=== PATIENT | female | born 1995 | race African-American/Black ===

== ENCOUNTER 2016-11-12 04:32 | Emergency (ER) | payer MEDICAID ==
[~2016-11-12] VITALS: Ht 172.7 cm; Wt 79.4 kg
[2016-11-12 07:31] VITALS: BP 108/69
[2016-11-12 08:16] LABS: Basophils # (auto) 0 uL; Basophils % (auto) 0.4 % (0.0-2.0); CONDITION Y; Eosinophils # (auto) 0 uL; Eosinophils % (auto) 0.7 % (0.0-7.0); Hematocrit 41.1 % (36.0-46.0); Hemoglobin 13.9 g/dL (12.2-16.2); Lymphocytes % (auto) 14.8 % (10.0-50.0); Mean Corpuscular Hemoglobin 27.5 pg (28.0-32.0); Mean Corpuscular Hgb Conc. 33.8 g/dL (32.0-36.0); Mean Corpuscular Volume 81.6 fL (80.0-100.0); Mean Platelet Volume 8.3 fL (7.4-10.4); Monocytes # (auto) 0.7 uL; Monocytes % (auto) 10.6 % (0.0-12.0); Neutrophils % (auto) 73.5 % (37.0-80.0); Platelet Count (auto) 301 10^3/uL (140-450); Red Cell Distribution Width 14.1 % (11.6-16.0); White Blood Cell 6.8 10^3/uL (4.4-10.8)
[2016-11-12 08:27] LABS: INR 0.98 (0.9-1.15); Partial Thromboplastin Time 26.9 sec (22.64-33.71); Prothrombin Time 10.7 sec (9.37-12.3)
[2016-11-12 08:33] LABS: Albumin 3.3 g/dL (3.4-5.0); Anion Gap 9 (5-15); Aspartate Aminotransferase 89 U/L (15-37); BUN/Creatinine Ratio 12.5; Blood Urea Nitrogen 10 mg/dL (7-18); Calcium 8.2 mg/dL (8.5-10.1); Carbon Dioxide 25 mmol/L (21-32); Chloride 108 mmol/L (98-107); GFR African American 114 mL/min; GFR Non-African American 94 mL/min; Glucose 90 mg/dL (74-106); Potassium 3.4 mmol/L (3.5-5.1); Sodium 142 mmol/L (136-145)
[2016-11-12 08:44] LABS: Alkaline Phosphatase 101 U/L (45-117); Bilirubin, Total 0.3 mg/dL (0.2-1.0); Total Protein 7.2 g/dL (6.4-8.2)
== END 2016-11-12 09:12 | disposition home or self-care (01) ==
LOC: EDUNIT# 04:32 → ER 04:32
DX: T78.40XA Allergy, unspecified, initial encounter (principal)
CPT/HCPCS: 36415; 71010; 80053; 83735; 84484; 85025; 85610; 85730; 93005

== ENCOUNTER 2018-07-23 22:23 | Emergency (ER) | payer MEDICAID ==
[~2018-07-23] VITALS: Ht 172.7 cm; Wt 90.7 kg
[2018-07-24 00:47] LABS: Basophils # (auto) 0 uL; Basophils % (auto) 0.6 % (0.0-2.0); Eosinophils # (auto) 0.5 uL; Eosinophils % (auto) 6.6 % (0.0-7.0); Hematocrit 32.8 % (36.0-46.0); Hemoglobin 11.1 g/dL (12.2-16.2); Lymphocytes # (auto) 2.1 uL; Lymphocytes % (auto) 28.8 % (10.0-50.0); Mean Corpuscular Hgb Conc. 33.7 g/dL (32.0-36.0); Mean Corpuscular Volume 82.9 fL (80.0-100.0); Monocytes # (auto) 0.7 uL; Monocytes % (auto) 9.9 % (0.0-12.0); Neutrophils # (auto) 3.9 uL; Neutrophils % (auto) 54.1 % (37.0-80.0); Platelet Count (auto) 235 10^3/uL (140-450); Red Blood Cells 3.95 10^6/uL (4.0-5.20); White Blood Cell 7.2 10^3/uL (4.4-10.8)
[2018-07-24 01:02] LABS: Potassium 3.5 mmol/L (3.5-5.1)
[2018-07-24 01:05] LABS: Albumin 2.8 g/dL (3.4-5.0); Calcium 8.5 mg/dL (8.5-10.1)
[2018-07-24 01:08] LABS: BUN/Creatinine Ratio 14.1
[2018-07-24 01:11] LABS: Bilirubin, Total 0.1 mg/dL (0.2-1.0); Total Protein 6.5 g/dL (6.4-8.2)
[2018-07-24 02:15] LABS: Urine Bacteria NONE SEEN /hpf (None Seen); Urine Blood Negative /uL (Negative); Urine Hyaline Cast FEW /lpf (0 - 2); Urine Mucus FEW (None Seen); Urine Specific Gravity 1.027 (1.001-1.035); Urine WBC 3 /hpf (0 - 5)
[2018-07-24 06:11] VITALS: BP 109/69
== END 2018-07-24 05:37 | disposition home or self-care (01) ==
LOC: ER 22:23
DX: O09.91 Supervision of high risk pregnancy, unspecified, first trimester (principal); O23.41 Unspecified infection of urinary tract in pregnancy, first trimester; Z3A.01 Less than 8 weeks gestation of pregnancy
CPT/HCPCS: 36415; 80053; 81001; 82962; 84702; 85025; 99283; J7030

== ENCOUNTER 2018-10-12 15:30 | Observation (INO) | payer MEDICAID ==
[2018-10-12] MEDS ORDERED: PREN-96 PO (17:48)
== END 2018-10-12 17:00 | disposition home or self-care (01) | DRG 566 ==
LOC: LDRP 15:30
PROVIDERS: ADMIT Obstetrics & Gynecology; ATTEND Obstetrics & Gynecology
DX: O00.01 Abdominal pregnancy with intrauterine pregnancy (principal); O99.313 Alcohol use complicating pregnancy, third trimester; Z3A.27 27 weeks gestation of pregnancy
CPT/HCPCS: 59025; 81002; G0378

== ENCOUNTER 2018-12-30 04:46 | Inpatient (IN) | payer MEDICAID ==
[~2018-12-30] VITALS: Ht 172.7 cm; Wt 104.3 kg
[2018-12-30] VITALS (12 sets, daily range): BP systolic 91–105; BP diastolic 50–73
[~2018-12-30 04:46] MED LIST: PREN-96 PO
[2018-12-30] MEDS ORDERED: LACTATED RINGER'S 1,000 ML IV SCH ×2 (05:00→12:24)
[2018-12-30 06:45] LABS: Basophils # (auto) 0 uL; Basophils % (auto) 0.2 % (0.0-2.0); Eosinophils # (auto) 0.2 uL; Eosinophils % (auto) 3.2 % (0.0-7.0); Hematocrit 32.3 % (36.0-46.0); Hemoglobin 10.5 g/dL (12.2-16.2); Lymphocytes # (auto) 1.7 uL; Lymphocytes % (auto) 27.1 % (10.0-50.0); Mean Corpuscular Hemoglobin 25.8 pg (28.0-32.0); Mean Corpuscular Hgb Conc. 32.6 g/dL (32.0-36.0); Mean Corpuscular Volume 79.1 fL (80.0-100.0); Monocytes # (auto) 0.8 uL; Neutrophils # (auto) 3.5 uL; Neutrophils % (auto) 56.5 % (37.0-80.0); Nucleated Red Blood Cells % 0.2 %; Platelet Count (auto) 220 10^3/uL (140-450); Red Blood Cells 4.08 10^6/uL (4.0-5.20); Red Cell Distribution Width 16.5 % (11.8-14.3); White Blood Cell 6.2 10^3/uL (4.4-10.8)
[2018-12-30 06:46] LABS: Urine Bacteria FEW /hpf (None Seen); Urine Blood Negative /uL (Negative); Urine Specific Gravity 1.007 (1.001-1.035); Urine WBC 14 /hpf (0 - 5)
[2018-12-30 07:00] LABS: INR 0.93 (0.9-1.15); Partial Thromboplastin Time 28.4 sec (23.64-32.05)
[2018-12-30 07:10] LABS: Potassium 3.2 mmol/L (3.5-5.1)
[2018-12-30 07:17] LABS: Albumin 2.4 g/dL (3.4-5.0); Bilirubin, Total 0.2 mg/dL (0.2-1.0); Calcium 8.4 mg/dL (8.5-10.1); Total Protein 6.1 g/dL (6.4-8.2)
[2018-12-30] MEDS ORDERED: TERBUTALINE SULFATE 1 MG/ML 1ML VIAL SC ONE (08:00)
[2018-12-30] MEDS ORDERED: POTASSIUM CHL 20MEQ/100ML 100 ML IV ONE ×2 (08:00)
[2018-12-30] MEDS ORDERED: TETRACAINE 1% INJ 2 ML VIAL IJ ONE ×2 (10:54→10:56)
[2018-12-30] MEDS ORDERED: MORPHINE SULF(PF) 0.5MG/ML 10ML VIAL ONE (11:02)
[2018-12-30] MEDS ORDERED: LIDOCAINE 1% HCL (LOCAL ANESTH.) INJ 20ML MDV ONE (11:21)
[2018-12-30] MEDS ORDERED: CLINDAMYCIN 900MG IV 50 ML IV ONE (11:23)
[2018-12-30] MEDS ORDERED: OXYTOCIN 10 UNIT/ML 10ML VIAL ONE (11:33)
[2018-12-30] MEDS ORDERED: MIDAZOLAM HCL 1MG/1ML-2 ML VIAL ONE (11:53)
[2018-12-30] MEDS ORDERED: METOCLOPRAMIDE HCL 5MG/ml INJ 2ml VIAL IV PRN (12:30)
[2018-12-30] MEDS ORDERED: ONDANSETRON HCL 4 MG/2 ML VIAL IV PRN ×2 (12:30)
[2018-12-30] MEDS ORDERED: HYDROmorphone HCL 2 MG/ML VL IV PRN ×2 (12:30)
[2018-12-30] MEDS ORDERED: NALOXONE HCL 0.4 MG/ML VIAL IV PRN ×2 (12:30)
[2018-12-30] MEDS ORDERED: diphenhdrAMINE HCL 50 MG/1 ML VL IV PRN (12:30)
[2018-12-30] MEDS ORDERED: KETOROLAC TROMETH 30 MG/ML 1ML VIAL IV PRN (12:30)
--- NOTE | 2018-12-30 13:30 | NUR ---
Post Op for LDRP: Received patient from PACU via bed to room 107b. Patient A/A/Ox4, abdominal binder and bilateral SCD's are in place, IV fluids placed on pump and infusing per order, incisional site dressing clean/dry/intact and Lazo Catheter to gravity draining clear yellow urine. Incentive Spirometer at bedside and instruction on proper use with return demonstration done by patient.
[2018-12-30] MEDS ORDERED: CLINDAMYCIN 900MG IV 50 ML IV SCH (14:00)
--- NOTE | 2018-12-30 14:35 | NUR ---
PER [place] REQUEST DR WHEAT CALLED TO COME TALK TO THE FAMILY IN REGARDS ANESTHESIA EFFECTS, PER DR WHEAT SHE IS IN CASE AND WILL COME TALK TO THE FAMILY IN LITTLE BIT. FAMILY NOTIFIED.
--- NOTE | 2018-12-30 15:02 | NUR ---
DR WHEAT AT BEDSIDE, TALKING TO THE PT AND FAMILY IN REGARDS ANESTHESIA. QUESTIONS AND CONCERNS ANSWERED BY DR WHEAT.
[2018-12-30] MEDS ORDERED: KETOROLAC TROMETH 30 MG/ML 1ML VIAL IV SCH ×2 (17:00→18:00)
[2018-12-30 17:16] LABS: Alcohol, Urine < 3.0 mg/dL (0-5); Amphetamine Screen, Urine NEGATIVE (NEGATIVE); Barbiturate Scree,Urine NEGATIVE (NEGATIVE); Benzodiazephine Screen, Urine POSITIVE (NEGATIVE); Cannabinoid Screen, Urine NEGATIVE (NEGATIVE); Cocaine Screen, Urine NEGATIVE (NEGATIVE); Opiate Scree,Urine NEGATIVE (NEGATIVE); Phencyclidine Screen, Urine NEGATIVE (NEGATIVE)
[2018-12-30] MEDS: CLINDAMYCIN 900MG IV 50 ML IV SCH (19:45)
[2018-12-30] MEDS: KETOROLAC TROMETH 30 MG/ML 1ML VIAL IV PRN (23:02)
--- NOTE | 2018-12-30 23:35 | NUR ---
ABD DRESSING REMOVED, INCISION OPEN TO AIR. JUDITH INTACT, SCANT SEROSANGUENOUS DRAINAGE NOTED ON DRESSING. NO DRAINAGE EDEMA OR REDNESS OF INCISION SITE NOTED. PAD PLACED LOOSELY OVER INCISION SITE AND JUDITH, SECURED WITH ABD BINDER. PT TOLERATED WELL.
--- NOTE | 2018-12-30 23:45 | NUR ---
Ambulation: Patient OOB with standby assistance by RN. Patient ambulated to bedside chair with steady gait. Lazo cath still inplace, pericare provided by this RN, mesh underwear and pads applied. Clean gown provided and bed linen changed. Pt ambulated down hallway x1. Patient ambulated back to bed with steady gait and no distress noted.
[2018-12-31 03:30] VITALS: BP 103/65
[2018-12-31] MEDS: KETOROLAC TROMETH 30 MG/ML 1ML VIAL IV PRN (04:25)
[2018-12-31] MEDS: CLINDAMYCIN 900MG IV 50 ML IV SCH (04:25)
[2018-12-31 05:11] LABS: RPR Non Reactive (Non Reactive)
--- NOTE | 2018-12-31 05:26 | NUR ---
Aceves catheter dc'd Order to discontinue aceves catheter. Aceves dc'd with clean technique following deflation of balloon. Patient tolerated well with no complaints of pain. Continue care.
[2018-12-31 06:57] LABS: Basophils # (auto) 0 uL; Eosinophils # (auto) 0.1 uL; Lymphocytes # (auto) 1.2 uL; Monocytes # (auto) 0.9 uL; White Blood Cell 7.6 10^3/uL (4.4-10.8)
[2018-12-31 07:00] VITALS: BP 92/45
[2018-12-31 07:01] LABS: Basophils % (auto) 0.1 % (0.0-2.0); Eosinophils % (auto) 0.7 % (0.0-7.0); Hematocrit 32.8 % (36.0-46.0); Hemoglobin 10.9 g/dL (12.2-16.2); Lymphocytes % (auto) 15.4 % (10.0-50.0); Mean Corpuscular Hemoglobin 26.5 pg (28.0-32.0); Mean Corpuscular Hgb Conc. 33.2 g/dL (32.0-36.0); Mean Corpuscular Volume 79.9 fL (80.0-100.0); Monocytes % (auto) 11.6 % (0.0-12.0); Neutrophils # (auto) 5.5 uL; Neutrophils % (auto) 72.2 % (37.0-80.0); Platelet Count (auto) 184 10^3/uL (140-450); Red Cell Distribution Width 16.8 % (11.8-14.3)
[2018-12-31 07:06] LABS: Rubella Antibodies, IgG 1.04 index (Immune >0.99)
[2018-12-31] MEDS ORDERED: BISACODYL 10 MG RECT SUPP PR PRN (09:00)
[2018-12-31] MEDS: IBUPROFEN 800 MG TAB PO PRN ×2 (10:11→22:11)
[2018-12-31] MEDS: DOCUSATE SOD 100 MG CAP PO SCH ×2 (10:11→22:10)
[2018-12-31] MEDS: DOCUSATE CALCIUM 240 MG CAP PO SCH (10:11)
[2018-12-31 11:05] VITALS: BP 108/65
[2018-12-31] MEDS: SIMETHICONE 80 MG CHEWABLE TABLET PO SCH ×3 (12:10→22:11)
[2018-12-31] MEDS: HYDROcodone-ACET 5/325MG TAB PO PRN ×3 (12:11→20:46)
[2018-12-31 14:30] VITALS: BP 93/63
[2018-12-31 19:24] VITALS: BP 94/57
[2018-12-31 22:47] VITALS: BP 100/63
[2019-01-01] MEDS: HYDROcodone-ACET 5/325MG TAB PO PRN ×4 (02:19→22:01)
[2019-01-01 03:00] VITALS: BP 97/55
[2019-01-01] MEDS: SIMETHICONE 80 MG CHEWABLE TABLET PO SCH ×4 (05:46→22:01)
[2019-01-01 06:45] VITALS: BP 115/63
[2019-01-01] MEDS: DOCUSATE CALCIUM 240 MG CAP PO SCH (09:33)
[2019-01-01] MEDS: DOCUSATE SOD 100 MG CAP PO SCH ×2 (09:33→20:13)
[2019-01-01 11:00] VITALS: BP 108/56
[2019-01-01 15:00] VITALS: BP 116/69
[2019-01-01 19:00] VITALS: BP 106/69
[2019-01-01] MEDS: IBUPROFEN 800 MG TAB PO PRN (20:13)
[2019-01-01 23:00] VITALS: BP 109/69
[2019-01-02] MEDS: IBUPROFEN 800 MG TAB PO PRN (02:46)
[2019-01-02 03:14] VITALS: BP 104/65
[2019-01-02] MEDS: SIMETHICONE 80 MG CHEWABLE TABLET PO SCH (05:21)
[2019-01-02] MEDS: HYDROcodone-ACET 5/325MG TAB PO PRN (05:21)
[2019-01-02 07:00] VITALS: BP 132/75
--- NOTE | 2019-01-02 09:00 | NUR ---
Discharge: Discharge instructions given to mother of baby as ordered. Copies of and hearing screening, along with vaccination record given to mother. Mother encouraged to follow up with Information Systems Specialist of choice and to give envelope with infants information to emergency room rn at 1st office visit. All questions and concerns addressed. Mother of baby verbalized understanding and agreed to comply. Mother of baby encouraged to prepare for departure and notify RN ready to leave room for ID band removal/verification and car seat check.
--- NOTE | 2019-01-02 09:00 | NUR ---
Discharge: Discharge instructions given as ordered. Pt encouraged to follow up with CARTRIDGE GAUGER as instructed. All questions and concerns addressed. Patient verbalized understanding. Medication reconciliation completed and copy given to patient. All required/requested vaccines given and copies of vaccinations given to patient. Patient encouraged to prepare to depart unit.
[2019-01-02] MEDS: DOCUSATE CALCIUM 240 MG CAP PO SCH (10:00)
[2019-01-02] MEDS: DOCUSATE SOD 100 MG CAP PO SCH (10:00)
--- NOTE | 2019-01-02 10:55 | NUR ---
Discharge: Patient taken to vehicle ambulatory with all personal belongings, accompanied by staff and family member. No distress noted at time of departure, no adverse changes in status since initial assessment.
== END 2019-01-02 10:55 | disposition home or self-care (01) | DRG 540 ==
LOC: LDRP 04:46
PROVIDERS: ADMIT Obstetrics & Gynecology; ATTEND Obstetrics & Gynecology
PROC: 10D00Z1 Extraction of Products of Conception, Low, Open Approach (ICD-10-PCS; principal; 2018-12-30 10:54)
DX: O34.211 Maternal care for low transverse scar from previous cesarean delivery (principal); O65.5 Obstructed labor due to abnormality of maternal pelvic organs; Z37.0 Single live birth; Z3A.39 39 weeks gestation of pregnancy
CPT/HCPCS: 36415; 59025; 80053; 80307; 81001; 84112; 85025; 85610; 85730; 86592; 86703; 86762; 86850; 86900; 86901; 87340; 96361; 96375; G0378; J1885; J2001; J2250; J2405; J2590; J3480; J3490

== ENCOUNTER 2023-04-26 12:00 | Emergency (ER) | payer MEDICAID ==
[~2023-04-26] VITALS: Ht 172.7 cm; Wt 110.4 kg
[~2023-04-26 12:00] MED LIST changes: +ACET-1080 PO; +CYCL-839 PO; +NAPR-746 PO
[2023-04-26 12:32] VITALS: BP 103/50; PULSE 60; RESP 18; TEMP 98; O2SAT 99
[2023-04-26] MEDS ORDERED: KETOROLAC TROMETH 30 MG/ML 1ML VIAL IM ONE (12:45)
[2023-04-26] MEDS ORDERED: IBUP-1455 PO (13:46)
== END 2023-04-26 13:55 | disposition home or self-care (01) ==
LOC: ER 12:00
DX: S63.617A Unspecified sprain of left little finger, initial encounter (principal); Z88.0 Allergy status to penicillin; Z91.013 Allergy to seafood; W18.2XXA Fall in (into) shower or empty bathtub, initial encounter; Y93.89 Activity, other specified; Y92.89 Other specified places as the place of occurrence of the external cause; Y99.8 Other external cause status
CPT/HCPCS: 73130; 96372; 99283; J1885